=== PATIENT | male | born 1995 | race Caucasian/White ===

== ENCOUNTER 2017-02-19 06:28 | Day surgery (SDC) | payer OTHER, MEDICAID ==
[2017-02-19] MEDS ORDERED: DIPHENHYDRAMINE 50 MG INJ IV (06:30)
[2017-02-19] MEDS ORDERED: ONDANSETRON 4 MG INJ IV (06:30)
[2017-02-19] MEDS ORDERED: LABETALOL HCL 20MG INJ IV (06:30)
[2017-02-19] MEDS ORDERED: morphine (1 MG/ML) 10ML SYRINGE IV ×3 (06:30)
[2017-02-19] MEDS ORDERED: ATROPINE 1 MG/10 ML SYRINGE IV (06:30)
[2017-02-19] MEDS ORDERED: HYDROmorphONE (0.2 MG/ML) 10ML SYG IV ×3 (06:30)
[2017-02-19] MEDS ORDERED: OXYCODONE/ACETAMINOPHEN (5/325) TAB PO ×2 (06:30)
[2017-02-19] MEDS ORDERED: FENTAnyl 50 MCG/ML VIAL IV ×2 (06:30)
[2017-02-19] MEDS ORDERED: MEPERIDINE 25 MG INJ IV (06:30)
[2017-02-19] MEDS ORDERED: MIDAZOLAM 1 MG/ML 2 ML INJ IV (06:30)
[2017-02-19] MEDS ORDERED: EPHEDrine SULFATE 50 MG/5 ML SYG IV (06:30)
[2017-02-19] MEDS ORDERED: hydrALAzine 20 MG INJ IV (06:30)
[2017-02-19] MEDS ORDERED: LIDOCAINE 2% (SDV) 5 ML INJ (06:31)
[2017-02-19] MEDS ORDERED: ROCURONIUM 50 MG INJ (06:31)
[2017-02-19] MEDS ORDERED: NEOSTIGMINE 3 MG/3 ML SYRINGE (06:31)
[2017-02-19] MEDS ORDERED: FENTAnyl 50 MCG/ML VIAL (06:31)
[2017-02-19] MEDS ORDERED: PROPOFOL 20 ML (06:31)
[2017-02-19] MEDS ORDERED: GLYCOPYRROLATE 0.4 MG INJ (06:31)
[2017-02-19] MEDS ORDERED: MIDAZOLAM 1 MG/ML 2 ML INJ (06:31)
[2017-02-19] MEDS ORDERED: DEXAMETHASONE 4 MG/ML 1 ML INJ (06:32)
[2017-02-19] MEDS ORDERED: ONDANSETRON 4 MG INJ (06:32)
[2017-02-19] MEDS ORDERED: ROPIVACAINE 0.5 % 30 ML VIAL (06:43)
[2017-02-19] MEDS ORDERED: CEFAZOLIN 1 GM INJ (07:00)
[2017-02-19] MEDS ORDERED: SUCCINYLCHOLINE CHLORIDE 100 MG/5 ML SYG IV (07:00)
[2017-02-19] MEDS ORDERED: EPINEPHrine 100 MCG/10 ML SYG IV (08:03)
[2017-02-19] MEDS: morphine SULFATE/PF (10 MG/10 ML) INJ (09:17)
[2017-02-19] MEDS: SODIUM CL BACTERIOSTATIC 30 ML INJ (09:17)
[2017-02-19] MEDS: POLYMYXIN/BACITRACIN 1L IRRIG (09:23)
[2017-02-19] MEDS: EPINEPHrine 1 MG/ML 30 ML INJ IRR (09:24)
[2017-02-19] MEDS ORDERED: HYDROCODONE/APAP (5/325) TAB PO ×2 (12:00)
== END 2017-02-19 14:35 | disposition home or self-care (01) ==
LOC: SDS 06:28
DX: S83.232A Complex tear of medial meniscus, current injury, left knee, initial encounter (principal); S83.512A Sprain of anterior cruciate ligament of left knee, initial encounter; X58.XXXA Exposure to other specified factors, initial encounter; Y93.89 Activity, other specified; Y92.89 Other specified places as the place of occurrence of the external cause; Y99.8 Other external cause status
CPT/HCPCS: 29881